=== PATIENT | female | born 1935 | race Asian ===

== ENCOUNTER → 2016-06-29 | Outpatient (CLI) | payer OTHER | END | disposition home or self-care (01) | LOC: RADPV 09:39 | PROVIDERS: ATTEND Internal Medicine | DX: M47.896 Other spondylosis, lumbar region (principal); M51.36 Other intervertebral disc degeneration, lumbar region; M85.88 Other specified disorders of bone density and structure, other site; S32.018A Other fracture of first lumbar vertebra, initial encounter for closed fracture; S32.028A Other fracture of second lumbar vertebra, initial encounter for closed fracture; S32.038A Other fracture of third lumbar vertebra, initial encounter for closed fracture; S32.048A Other fracture of fourth lumbar vertebra, initial encounter for closed fracture; S32.058A Other fracture of fifth lumbar vertebra, initial encounter for closed fracture; M12.88 Other specific arthropathies, not elsewhere classified, other specified site; I70.0 Atherosclerosis of aorta; R10.2 Pelvic and perineal pain; M16.0 Bilateral primary osteoarthritis of hip | CPT/HCPCS: 72100; 72170 ==

== ENCOUNTER → 2016-11-18 | Outpatient (CLI) | payer OTHER | END | disposition home or self-care (01) | LOC: RADPV 12:21 | PROVIDERS: ATTEND Internal Medicine | DX: J84.89 Other specified interstitial pulmonary diseases (principal); I70.0 Atherosclerosis of aorta; J98.4 Other disorders of lung; M47.819 Spondylosis without myelopathy or radiculopathy, site unspecified | CPT/HCPCS: 71020 ==

== ENCOUNTER → 2017-01-27 | Outpatient (CLI) | payer OTHER | END | disposition home or self-care (01) | LOC: RADMN 13:00 | PROVIDERS: ATTEND Internal Medicine Pulmonary Disease | DX: J98.4 Other disorders of lung (principal); R91.8 Other nonspecific abnormal finding of lung field; I70.0 Atherosclerosis of aorta; I25.10 Atherosclerotic heart disease of native coronary artery without angina pectoris; M47.819 Spondylosis without myelopathy or radiculopathy, site unspecified | CPT/HCPCS: 71250 ==

== ENCOUNTER 2018-03-11 16:44 | Emergency (ER) | payer OTHER ==
[~2018-03-11] VITALS: Ht 149.9 cm; Wt 53.6 kg
[2018-03-11] MEDS ORDERED: HYDR-2924 PO (17:12)
[2018-03-11 17:56] LABS: EOSINOPHILS % (AUTO) 1.5 % (1.0-6.0); HEMATOCRIT 38.3 % (36-46); HEMOGLOBIN 13.1 g/dL (12.0-16.0); LYMPHOCYTES # (AUTO) 1.7 K/uL (1.0-4.8); LYMPHOCYTES % (AUTO) 19.1 % (22.0-44.0); MEAN CORPUSCULAR HEMOGLOBIN 32.4 pg (26.0-34.0); MEAN CORPUSCULAR HGB CONC 34.2 G/dL (31.0-37.0); MEAN CORPUSCULAR VOLUME 95 fL (80-100); MONOCYTES % (AUTO) 11.7 % (2.0-9.0); NEUTROPHILS # (AUTO) 5.9 K/uL (1.8-7.7); NEUTROPHILS % (AUTO) 66.7 % (40.0-70.0); PLATELET COUNT (AUTO) 287 K/uL (150-450); RED BLOOD CELL COUNT(AUTO) 4.04 MIL/uL (4.00-5.20); RED CELL DISTRIBUTION WIDTH 14.7 % (11.5-14.5)
[2018-03-11 18:05] LABS: CALCIUM, TOTAL 9.5 mg/dL (8.8-10.5); CREATININE 1.33 mg/dL (0.60-1.30); POTASSIUM 3.3 mmol/L (3.5-5.1)
[2018-03-11 18:12] LABS: ALBUMIN 4.4 g/dL (3.4-5.0); BILIRUBIN,TOTAL 0.5 mg/dL (0.1-1.0); TOTAL PROTEIN, SERUM 8.5 g/dL (6.4-8.2)
[2018-03-11] MEDS ORDERED: ACETAMINOPHEN 325 MG TABLET PO ONE (18:30)
[2018-03-11 18:43] VITALS: BP 163/77
== END 2018-03-11 19:43 | disposition home or self-care (01) ==
LOC: EMS 16:45
DX: R55 Syncope and collapse (principal); R51 Headache; R42 Dizziness and giddiness; I10 Essential (primary) hypertension
CPT/HCPCS: 70450; 93005

== ENCOUNTER 2018-07-25 11:19 | Emergency (ER) | payer OTHER ==
[~2018-07-25] VITALS: Ht 162.6 cm; Wt 50.0 kg
[~2018-07-25 11:19] MED LIST: HYDR-2924 PO
[2018-07-25] MEDS ORDERED: ASPI-1182 PO (11:43)
[2018-07-25] MEDS ORDERED: ALLO100T PO (11:43)
[2018-07-25] MEDS ORDERED: AMLO2.5T4 PO (11:43)
[2018-07-25] MEDS ORDERED: BISO1TAB7 PO (11:43)
[2018-07-25] MEDS ORDERED: SIMV-259 PO (11:43)
[2018-07-25] MEDS ORDERED: ONDA4 PO (11:43)
[2018-07-25] MEDS ORDERED: RANI150T7 PO (11:43)
[2018-07-25] MEDS ORDERED: LOSA25TA41 PO (11:43)
[2018-07-25] MEDS ORDERED: LEVO5TAB13 PO (11:43)
[2018-07-25] MEDS ORDERED: RALO60 PO (11:43)
[2018-07-25] MEDS ORDERED: COLC0.6T67 PO (11:43)
[2018-07-25 12:04] LABS: HEMATOCRIT 34.3 % (36-46); HEMOGLOBIN 11.4 g/dL (12.0-16.0); MEAN CORPUSCULAR HEMOGLOBIN 31.9 pg (26.0-34.0); MEAN CORPUSCULAR HGB CONC 33.3 G/dL (31.0-37.0); MEAN CORPUSCULAR VOLUME 96 fL (80-100); PLATELET COUNT (AUTO) 282 K/uL (150-450); RED BLOOD CELL COUNT(AUTO) 3.58 MIL/uL (4.00-5.20); RED CELL DISTRIBUTION WIDTH 13.6 % (11.5-14.5)
[2018-07-25 12:17] LABS: CALCIUM, TOTAL 9.2 mg/dL (8.8-10.5); CREATININE 1.28 mg/dL (0.60-1.30); POTASSIUM 3.9 mmol/L (3.5-5.1)
[2018-07-25 12:19] LABS: BAND NEUTROPHILS % (MANUAL) 24 % (0-5); LYMPHOCYTES % (MANUAL) 7 % (22-44); MONOCYTES % (MANUAL) 3 % (2-9); SEGMENTED NEUTROPHILS % 66 % (40-70)
[2018-07-25 12:21] LABS: ALBUMIN 4.1 g/dL (3.4-5.0); BILIRUBIN,TOTAL 0.9 mg/dL (0.1-1.0); TOTAL PROTEIN, SERUM 8.5 g/dL (6.4-8.2)
[2018-07-25 14:05] LABS: APPEARANCE,URINE CLEAR (CLEAR); BILIRUBIN,URINE NEGATIVE (NEGATIVE); GLUCOSE, URINE (UA) NEGATIVE (NEGATIVE); KETONES,URINE NEGATIVE (NEGATIVE); LEUKOCYTE ESTERASE ,URINE NEGATIVE (NEGATIVE); NITRATE,URINE POSITIVE (NEGATIVE); OCCULT BLOOD,URINE NEGATIVE (NEGATIVE); PROTEIN,URINE SEE CONFIRM (NEGATIVE); UROBILINOGEN,URINE 0.2 mg/dL (<=1.0)
[2018-07-25] MEDS ORDERED: SODIUM CHLORIDE 0.9% 1,000 ML IV ONE ×2 (14:15)
[2018-07-25] MEDS ORDERED: VANCOMYCIN HCL 1 GM/D5% WATER 200 ML IV ONE (14:15)
[2018-07-25] MEDS ORDERED: CefTRIAXone 1 GM/DEXTROSE 50 ML IV ONE (14:15)
[2018-07-25 14:16] LABS: BACTERIA,URINE Moderate /HPF (None Seen); RBC,URINE 0-2 /HPF (0-2); SQUAMOUS EPITHELIAL CELL,UR Few /LPF (None Seen); SULFOSALICYLIC ACID,URINE 2+ (Negative)
[2018-07-25] MEDS ORDERED: IOVERSOL 350 MG/ML 100 ML VIAL ONE (14:19)
[2018-07-25] MEDS ORDERED: SODIUM CHLORIDE 0.9% 100 ML ONE (14:19)
[2018-07-25 15:54] LABS: INFLUENZA TYPE A NEGATIVE FOR TYPE A (NEGATIVE); INFLUENZA TYPE B NEGATIVE FOR TYPE B (NEGATIVE)
[2018-07-25 21:30] VITALS: BP 142/65
== END 2018-07-25 22:21 | disposition short-term general hospital (02) ==
LOC: EMS 11:20
DX: A41.9 Sepsis, unspecified organism (principal); N39.0 Urinary tract infection, site not specified; K83.8 Other specified diseases of biliary tract; R05 Cough; I10 Essential (primary) hypertension; Z79.899 Other long term (current) drug therapy
CPT/HCPCS: 36415; 71045; 74177; 80053; 81001; 83605; 83690; 84484; 85025; 87040; 87077; 87086; 87186; 87804; 93005; 96365; 96366; 96368; 99291; J0696; J3370; J7030; J7050; Q9967